=== PATIENT | female | born 1960 | race Caucasian/White ===

== ENCOUNTER 2016-05-19 04:47 | Inpatient (IN) ==
[2016-05-19] MEDS ORDERED: ASPIRIN 325 MG TABLET PO STA (05:15)
[2016-05-19] MEDS ORDERED: NITROGLYCERIN 2% OINT 1 INCH/GM PACK TOP STA (05:15)
--- NOTE | 2016-05-19 05:18 | EKG Report ---
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
[2016-05-19] MEDS ORDERED: ASPIRIN 325 MG TABLET ONE (05:24)
[2016-05-19] MEDS ORDERED: NITROGLYCERIN 2% OINT 1 INCH/GM PACK TOP ONE (05:24)
[2016-05-19 05:26] LABS: Basophils % 0.4 % (0.0-0.8); Eosinophils # 0.1 10*3/uL (0.0-0.87); Eosinophils % 0.6 % (0.00-10.9); Hematocrit 38.5 VOL% (35.7-47.0); Immature Granulocytes % 0.6 %; Immature Granulocytes Absolute 0.06 #; Lymphocytes # 4.7 10*3/uL (1.4-4.0); Lymphocytes % 50.4 % (21.3-54.2); Mean Corpuscular HGB Conc 33.8 GM/DL (32-36); Mean Corpuscular Hemoglobin 27 PG (27-34); Mean Corpuscular Volume 80.2 FL (87-102); Mean Platelet Volume 9.2 FL (9.6-12.0); Monocytes # 0.8 10*3/uL (0.11-0.8); Monocytes % 8.7 % (1.7-12.7); Neutrophils # 3.6 10*3/uL (1.4-7.4); Neutrophils % 39.3 % (38.7-73.9); Platelet Count 234 T/CUMM (130-400); Red Cell Distribution Width 13.7 % (9.3-17.3); White Blood Count 9.3 T/CUMM (4-12)
--- NOTE | 2016-05-19 05:30 | Emergency Department Note ---
I, Vi Kim, am scribing for, and in the presence of, Dewayne Prince MD 05:23. ISuresh Robert M, MD, personally performed the services described in this documentation, ascribed by Vi Kim in my presence, and it is both accurate and complete . Arrival - Arrival ED Nursing Triage Note: pt presented to triage ambulatory with c/o chest tightness and L shoulder pain that radiates down L arm. Naproxen 440mg taken GREENS TIER. pt also c/o high B/P. B/P was 208/116 GREENS TIER. Lisinopril/HCTZ 20/25mg and Atenolol taken 0400. B/P now 187/110. rates pain 08/23. Mode of Arrival: Ambulatory Limitations: No Limitations Source: Patient - History of Present Illness Onset (ago): hour(s) Consistency: intermittent Severity: moderate Severity scale (1-10): 6 Quality: sharp Date of Last Menstrual Period: hyst <Dewayne Prince - Last Filed: 05/19/16 05:30> <Shmuel Reyes - Last Filed: 05/19/16 06:45> - Arrival Chief Complaint: Chest Pain Stated Complaint: chest pain, lEFT arm pain , HBP Time Seen by Provider: 05/19/16 05:15 - History of Present Illness HPI Narrative: Pt is a 55 y/o female that came to the ED with c/o chest tightness that began about 12 hours ago. Pt has associated sxs of left arm pain radiating from the top of her shoulder to her wrist but denies nausea or fever. Pt reports she took naproxen when sxs came on and the pain eased off but then it "came back full force." Pt denies a Hx of heart problems but states she does have HTN. Pt states she is anxious as we walked into the room. Pt reports she has been lifting an overweight pt at work and it makes her chest pain worse. Pt denies being a smoker. No other complaints/pain in ED at this time. (Vi Kim) Pt is a 55 y/o female that came to the ED with c/o chest tightness that began about 12 hours ago. Pt has associated sxs of left arm pain radiating from the top of her shoulder to her wrist but denies nausea or fever. Pt reports she took naproxen when sxs came on and the pain eased off but then it "came back full force." Pt denies a Hx of heart problems but states she does have HTN. Pt states she is anxious as we walked into the room. Pt reports she has been lifting an overweight pt at work and it makes her chest pain worse. Pt denies being a smoker. No other complaints/pain in ED at this time. (Dewayne Prince) Patient states that she took her home blood pressure medications just prior to coming to the emergency department. This includes lisinopril and atenolol. ( Shmuel Reyes) Allergies/Adverse Reactions: Allergies Allergy/AdvReac Type Severity Reaction Status Date / Time Penicillins Allergy Unknown/Unable Verified 05/19/16 05:01 to obtain Review of System - Review of System 12 point system: reviewed and no additional remarkable complaints except as stated - Review of System Constitutional: Absent: chills, fever Respiratory: Absent: cough Cardiovascular: Present: other (chest tightness) Gastrointestinal: Absent: abdominal pain, nausea Musculoskeletal: Present: arm pain (left shoulder pain that radiates down to her wrist) Skin: Absent: rash Neurological: Absent: headache Psychiatric: Present: anxiety <Dewayne Prince - Last Filed: 05/19/16 05:30> Medical,Surgical,& Family Hx - Medical History Cardio: History of: Hypertension Psychological: History of: Bipolar Disorder, Depression Endocrine: History of: Diabetes Mellitus (NIDDM), Dyslipidemia Gastrointestinal: History of: GERD - Surgical History Reproductive Surgeries: Surgical HX of;: Hysterectomy - Social History Smoking Status: Never smoker Frequency of Alcohol Use: Rarely Type of Drug Use: None <Dewayne Prince - Last Filed: 05/19/16 05:30> Exam - General General appearance: alert, in no apparent distress - Head Head exam: Present: atraumatic, normocephalic - Eye Eye exam: Present: PERRL, EOMI - ENT ENT exam: Present: mucous membranes moist. Absent: mucous membranes dry - Neck Neck exam: Present: full ROM. Absent: tenderness - Chest Chest inspection: Present: symmetric chest wall rise. Absent: tenderness - Respiratory Respiratory exam: Present: normal lung sounds bilaterally. Absent: respiratory distress - Cardiovascular Cardiovascular exam: Present: regular rate, normal rhythm, normal heart sounds - Abdominal Exam Abdominal exam: Present: soft. Absent: tenderness - Extremities Exam Extremities exam: Present: full ROM. Absent: tenderness - Back Exam Back exam: Present: full ROM. Absent: tenderness - Neurological Exam Neurological exam: Present: alert, oriented X3, CN II-XII intact. Absent: motor sensory deficit - Psychiatric Psychiatric exam: Present: normal affect, normal mood - Skin Skin exam: Present: warm, dry <Dewayne Prince - Last Filed: 05/19/16 05:30> Vital Signs: Vital Signs Temperature 97.8 F 05/19/16 05:20 Pulse Rate 72 05/19/16 05:20 Respiratory Rate 20 05/19/16 05:20 Blood Pressure 187/110 05/19/16 05:20 O2 Sat by Pulse Oximetry 97 05/19/16 04:54 Course <Dewayne Prince - Last Filed: 05/19/16 05:30> - Consultations Time: 06:25 <Shmuel Reyes - Last Filed: 05/19/16 06:45> - Consultations Consultation #1: Discussed with hospitalist. Patient will be admitted to their service. Discussed with Dr. Haywood. He states that he cannot admit this patient and that I need to call the hospitalist that comes on at 7 AM. (Shmuel Reyes) Results <Dewayne Prince - Last Filed: 05/19/16 05:30> - Labs CBC & BMP: 05/19/16 05:06 05/19/16 05:06 Lab Results: I have reviewed the patients labs - EKG EKG results: interpreted by ERMD - Diagnostic Findings Procedure: Chest x-ray: image reviewed by me (No infiltrates, no pleural effusions) <Shmuel Reyes - Last Filed: 05/19/16 06:45> - Impressions EKG: Normal sinus rhythm rate of 73, nonspecific ST-T wave changes, normal axis. (Shmuel Reyes) Disposition <Dewayne Prince - Last Filed: 05/19/16 05:30> Case discussed with: patient <Shmuel Reyes - Last Filed: 05/19/16 06:45> Clinical Impression: Chest pain, Diabetes mellitus, Essential hypertension Disposition: Still a Patient Condition: Stable
[2016-05-19 05:39] LABS: INR 0.9; PT Patient Result 9.7 SECS
[2016-05-19 05:40] LABS: Apearance,Urine CLEAR (Clear); Bilirubin,Urine Negative (Negative); Blood, Urine Negative (Negative); Glucose,Urine (UA) >=500 mg/dL (Negative); Ketones,Urine Negative (Negative); Mucus,Urine Occasional /LPF (Occasional); Nitrite,Urine Negative (Negative); Protein,Urine Negative; RBC,Urine 1 /HPF (0-4); Squamous Epithelial Cell,Urine Occasional /HPF (0-10); Urine Color Straw (Yellow); Urine Specific Gravity 1.035 (1.001-1.035); Urine Urobilinogen < 2.0 EU/DL (0.2-1.0); WBC,Urine 1 /HPF (0-6)
[2016-05-19 06:01] LABS: Albumin 3.9 G/DL (3.4-5.0); Bilirubin,Total 0.4 MG/DL (0.2-1.0); Calcium 8.8 MG/DL (8.5-10.1); Osmolality,Calculated 292.7 MOS/KG (273-304); Potassium 3.9 MMOL/L (3.5-5.1); Total Protein 7.5 G/DL (6.4-8.3)
[2016-05-19] MEDS ORDERED: METOPROLOL TARTRATE 5 MG/5 ML VIAL IV STA (06:20)
[2016-05-19] MEDS ORDERED: amLODIPine 5 MG TABLET PO STA (06:20)
--- NOTE | 2016-05-19 07:32 | XRay Report ---
History: Chest pain Date: 05/19/2016 Study: Chest x-ray AP portable Comparison exam: October 23, 2008 chest x-ray There is mild cardiomegaly. There is no pulmonary vascular engorgement. The mediastinal contours are otherwise stable. There is no acute infiltrate or pleural effusion. There is calcified granuloma in the right midlung. There is nodular calcification in the proximal left humeral metaphysis as before, which may represent enchondroma Impression: Mild cardiomegaly. No acute cardiopulmonary process otherwise PROCEDURE INTERPRETED AT [facility] DEPARTMENT OF RADIOLOGY Final Report Signed by: Dr. Kim Rasheed
--- NOTE | 2016-05-19 07:50 | EKG Report ---
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
--- NOTE | 2016-05-19 08:47 | Hospitalist History & Physical ---
<Arely Omalleyda - Last Filed: 05/19/16 09:18> Assessment and Plan - Time spent with patient Time spent with patient: Greater than 30 minutes (1) Chest pain Status: Acute Assessment and plan: We will admit to inpatient telemetry for full cardiac work-up. We will obtain obtain venous and carotid doppler, HGA1C, thyroid, and lipid panels. We will initiate VTE prophylaxis. Monitor for trends in cardiac enzymes and restart all previous home medications as previously directed. Will entertain cardiology consult if warranted. Current Visit: Yes Qualifiers: Ischemic chest pain type: unspecified angina pectoris type (2) Diabetes mellitus Status: Acute Assessment and plan: We will monitor blood glucose levels every 4 hours with sliding scale coverage. Will consult dietary for dietary management. Current Visit: Yes Qualifiers: Diabetes mellitus type: type 2 Diabetes mellitus complication status: with unspecified complications (3) Essential hypertension Status: Acute Assessment and plan: Will resume antihypertensive agents as previously ordered. Will monitor vital signs closely for abnormalities. Current Visit: Yes History of Present Illness Chief complaint: Chest pain/hypertension History of present illness: This is a 55-year-old middle-aged female that presented to the ED this morning with a complaint of chest pain. 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 She reports that it initially started as epigastric pain with subsequent radiation to the neck, left upper back, and left ear. She attributed these symptoms to the increased workload assignment on the floors. As the symptoms worsen, she reports taking her blood pressure which was grossly elevated per her report at 208/116. She reports that she took several of her antihypertensive agents including Atenolol and Norvasc. She continued on with her shift until the discomfort became unbearable; at that time she presented to the ED for further evaluation. She is concerned about the confidentiality of her hospital encounter and requests do not publish status. Home Medications Medication Instructions Recorded Confirmed Type ACETAMIN/diphenhydrAMIN 500-25 2 tablet PO BEDTIME 05/19/16 05/19/16 History [Tylenol PM] Aspirin [Ecotrin] 81 mg PO DAILY 05/19/16 05/19/16 History Atenolol 25 mg PO ACHS 05/19/16 05/19/16 History Bupropion HCl [Bupropion Xl] 300 mg PO DAILY 05/19/16 05/19/16 History Insulin Glargine,Hum.rec.anlog 40 unit SUBCUT DAILY 05/19/16 05/19/16 History [Tomichealalcira NowakIngridar] Lisinopril/Hydrochlorothiazide 1 each PO DAILY 05/19/16 05/19/16 History [Lisinopril-Hctz 20-25 mg Tab] Lovastatin 20 mg PO BEDTIME 05/19/16 05/19/16 History Magnesium 400 mg PO BEDTIME 05/19/16 05/19/16 History Melatonin/Pyridoxine HCl (B6) 10 mg PO BEDTIME 05/19/16 05/19/16 History [Melatonin 5 mg Tablet] Omeprazole 20 mg PO DAILY 05/19/16 05/19/16 History lamoTRIgine [Lamotrigine Tab] 150 mg PO BEDTIME 05/19/16 05/19/16 History risperiDONE TAB [RisperDAL TAB] 0.5 mg PO ACHS 05/19/16 05/19/16 History Allergies Allergy/AdvReac Type Severity Reaction Status Date / Time Penicillins Allergy Unknown/Unable Verified 05/19/16 05:01 to obtain Medical,Surgical,& Family Hx - Medical History Cardio: History of: Hypertension Psychological: History of: Bipolar Disorder, Depression Endocrine: History of: Diabetes Mellitus (NIDDM), Dyslipidemia Gastrointestinal: History of: GERD - Surgical History Reproductive Surgeries: Surgical HX of;: Hysterectomy - Family History Family History: Reports;: Family Diabetes, Family Heart Disease, Family Hypertension - Social History Smoking Status: Never smoker Frequency of Alcohol Use: Rarely Type of Drug Use: None Marital Status: Lives With:: Spouse Functional capacity: independent ambulation Exam - Constitutional Vitals: Period Temp Pulse Resp BP Sys/Owens Pulse Ox Last 24 Hr 97.8 F-97.8 F 72-72 20-20 187-187/110-110 97 General appearance: no acute distress, morbidly obese - Head Head exam: Present: normal inspection, normocephalic, atraumatic - Eye Eye exam: Present: EOMI. Absent: conjunctival injection, periorbital swelling, scleral icterus Pupils: Present: CLIFF, normal accommodation - ENT ENT exam: Present: normal exam - Neck Neck exam: Present: normal inspection. Absent: lymphadenopathy, thyromegaly - Respiratory Respiratory exam: Present: clear to auscultation bilaterally. Absent: accessory muscle use, rales, rhonchi, stridor - Cardiovascular Cardiovascular exam: Absent: gallop, JVD, rubs - GI/Abdominal GI/Abdominal exam: Present: normal bowel sounds, soft (obese) - Extremities Exam Extremities exam: Present: normal inspection - Back Exam Back exam: Present: normal inspection - Neurological Exam Neurological exam: Present: alert, oriented X3, CN II-XII intact - Psychiatric Psychiatric exam: Present: suicidal ideation. Absent: anxious, flat affect - Skin Skin exam: Present: normal color, dry. Absent: cyanosis, diaphoretic, erythema Results - Labs CBC & BMP: 05/19/16 05:06 05/19/16 05:06 Lab Results: I have reviewed the past 24 hour labs - EKG EKG results: interpreted by VERONICA EKG shows: sinus rhythm Quality Measures - VTE Deep Vein Thrombosis/Pulmonary Embolism Present on Admission: No <Jared Flowers - Last Filed: 05/19/16 13:10> Assessment and Plan (1) Chest pain Status: Acute Assessment and plan: Agree with assessment and plan as described above. She tells me that she's had an EKG within the past [address], so we will try to get that tracing to compare with her current tracings. Current Visit: Yes Qualifiers: Ischemic chest pain type: unspecified angina pectoris type History of Present Illness History of present illness: Ms. Olivarez is a 55 year old female The patient reports a history of type II DM for about 20 years. Glucoses improved with weight reduction, and she apparently lost over 130 pounds at one point. She is recently started on a new insulin. 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 However , she's not sure about that. She found her blood pressure to be elevated, and also noted some dizziness, chest discomfort, and some vague dyspnea. There is no nausea. She presented to the emergency room for evaluation, and is admitted to rule out acute coronary syndrome. Exam - Constitutional Vitals: Period Temp Pulse Resp BP Sys/Owens Pulse Ox Last 24 Hr 98.1 F 72-74 17-18 124-137/69-75 97 Results - Labs CBC & BMP: 05/19/16 05:06 05/19/16 05:06
[2016-05-19] MEDS ORDERED: DEXTROSE 50% 25 GM/50 ML VIAL IV PRN (09:19)
[2016-05-19] MEDS ORDERED: GLUCAGON 1 MG VIAL IM PRN (09:19)
--- NOTE | 2016-05-19 11:22 | EKG Report ---
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
--- NOTE | 2016-05-19 11:37 | Ultrasound Report ---
Referring physician: Jared Flowers MD Exam: Carotid ultrasound Date: May 19, 2016 Comparison: None Reason: Chest pain, left arm pain Technique: Duplex scan of the carotid arteries was performed using B-Mode/grayscale imaging and Doppler spectral analysis and color flow. Ultrasound images were captured and stored. Findings: There is minimal partially calcified plaque at the carotid bifurcations. The carotid artery diameters are as follows: Right CCA: 0.59 cm Right proximal ICA: 0.69 cm Right distal ICA: 0.53 cm Left CCA: 0.60 cm Left proximal ICA: 0.67 cm Left distal ICA: 0.41 cm The peak systolic velocities are as follows: Right CCA: 74 cm/s Right proximal ICA: 39 cm/s Right distal ICA: 34 cm/s Right ECA: 45 cm/s Left CCA: 62 cm/s Left proximal ICA: 51 cm/s Left distal ICA: 63 cm/s Left ECA: 61 cm/s The peak systolic ICA/CCA velocity ratios are as follows: 0.5 on the right and 1.0 on the left. Antegrade flow is present within both vertebral arteries. Impression: 1. Less than 50% stenosis of both cervical internal carotid arteries. 2. The Society of Radiologists in Ultrasound consensus conference criteria was used. The Ultrasound images were captured and stored. PROCEDURE INTERPRETED AT [facility] [place] DEPARTMENT OF RADIOLOGY Final Report Signed by: Dr. Kane Wang
[2016-05-19] MEDS ORDERED: ACETAMINOPHEN 325 MG TABLET PO PRN (11:55)
[2016-05-19] MEDS: INSULIN REGULAR 100 UNIT/ML SUBCUT SCH ×3 (12:24→20:42)
--- NOTE | 2016-05-19 16:40 | Cardiology Consult Note ---
Hong Cruz Rachel, RN, am scribing for, and in the presence of, Ayan Peralta MD 16:37. Assessment and Plan - Time spent with patient Time spent with patient: Greater than 30 minutes (1) Hyperlipidemia Status: Chronic Current Visit: Yes (2) Depression Status: Chronic Current Visit: Yes (3) GERD (gastroesophageal reflux disease) Status: Chronic Current Visit: Yes (4) Family history of coronary artery disease Status: Acute Current Visit: Yes (5) Chest pain Status: Acute Current Visit: Yes Qualifiers: Ischemic chest pain type: unspecified angina pectoris type (6) Diabetes mellitus Status: Chronic Current Visit: Yes Qualifiers: Diabetes mellitus type: type 2 Diabetes mellitus complication status: with unspecified complications (7) Essential hypertension Status: Chronic Current Visit: Yes (8) Obesity Status: Acute Current Visit: Yes History of Present Illness - Data of Consult Patient: new to practice Consult date: 05/19/16 Requesting Physician: Roseanne Omalley Primary care physician: Deandra Santana - Consult Narrative Reason for consult: Chest discomfort and arm pain History of present illness: Ms. 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 Her primary care provider is Dr. Kaia Santana. Patient presented to the ER this morning after experiencing left arm pain and chest discomfort. She has risk factors significant for diabetes, hypertension, hyperlipidemia, obesity, sedentary lifestyle and family history of premature coronary artery disease (dad at age 48 from [place] , mom has history of CABG). She reports that she has never smoked in the past. Patient has a past medical history of GERD, depression and bipolar. Patient denies any significant past cardiac surgical history. She reports that she has never underwent cardiac catheterization or cardiac stress testing. 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 Patient was in her usual state of health until last night at work she began to have moderate left arm discomfort. She reports that this began around 7 PM at the beginning of her shift. This continued to get worse throughout the night and around 3:15 a.m. while getting vital signs she noticed it became more severe and radiated to her upper back. She tells me that at that time she had another RN to check her blood pressure and it was noted to be 208/116. She tells me that after seeing her blood pressure she began having mild chest discomfort. She describes her chest discomfort a mild tightening pain. She rates this a 5 out of 10. She describes her left arm pain as a constant aching pain. She rates this as a 7 out of 10. Her discomfort was not associated with shortness of breath, nausea, lightheadedness, palpitations or diaphoresis. She is unable to identify any aggravating factors. She does tell me that rest did make her arm and chest pain better. She tells me that after her shift was over she rechecked her blood pressure and it remained extremely high. Her arm pain continued so she decided to report to the ER for further evaluation at that time. She confirms that nitroglycerin did help chest and arm discomfort. She denies dyspnea on exertion, exercise intolerance, orthopnea, PND, fever, chills , cough, abdominal pain, vomiting, melena, heart racing and palpitations. She was admitted under hospitalist's service and housed on the telemetry floor for close observation. Cardiology has been consulted for further evaluation of patient's chest discomfort. Of note, patient denies exertional chest discomfort and shortness of breath. She also denies exercise intolerance. She reports that this is the only time she has experienced chest discomfort and left arm pain. Patient was seen and examined on telemetry. She was sitting up in chair without any acute distress. She has not currently requiring any oxygen. Her troponin has been negative 3 checks. Her BNP is noted to be 11. Her hemoglobin A1c is uncontrolled at 11.1. Creatinine is stable at 0.8. She continues to complain of left arm discomfort. She tells me that it is now a 2 out of 10. This pain is not reproducible upon exam and not made worse with range of motion. Chest x-ray reveals mild cardiomegaly without any acute cardia pulmonary processes. Carotid ultrasound revealed less than 50% stenosis of both cervical internal carotid arteries. EKG reveals nonspecific ST segment and T wave abnormality. There is no previous EKG to compare this to. She is currently in sinus rhythm with heart rate in the 80s without any overt arrhythmias or ectopy noted. Review of labs-blood cell count 9.3, H&H 13 and 38.5, sodium 138, potassium 3.9 , creatinine 0.8, hemoglobin A1c 11.1, troponin negative 3, BNP 11 Assessment/plan: 1. Chest pain--will proceed with left heart catheterization in the morning. 2. Diabetes--management per hospitalist 3. Hyperlipidemia-- will check a lipid panel 4. Hypertension-- This seems to be better controlled this afternoon. Will adjust medications as needed during hospitalization. 5. Obesity--counseled patient on importance of weight loss. 6. Family history of premature coronary artery disease 7. GERD--this is clinically stable Cardiology addendum Patient examined, chart reviewed, discussed in detail with the patient and her and her mother. 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 EKG shows sinus rhythm with anterior T-wave inversions. . Hemoglobin A1c of 11.1. Chest x-ray shows cardiomegaly but no CHF or infiltrate. Chronic hypertension Type II diabetic 5 feet 4 inches tall, 248 pounds Lifetime non-smoker Rare social drinker only. Father a heart attack age 48. Mother had coronary stents in 2013, followed by two-vessel CABG and then aortic valve replacement in 2014. History of depression Blood pressure 156/86. Pulse is 78 and regular. No arcus. Flat neck veins. Decreased breath sounds but clear. Regular rhythm. No murmur or gallop. Abdomen obese soft benign. Femoral pulses 2+ without bruit. Distal pulses 2+ no edema Lab data Hemoglobin 13.0 hematocrit 38.5 white blood cell count 9.3 Sodium 138 potassium 3.9 chloride 100 CO2 23 BUN 15 creatinine 0.80 INR 0.9 A1c 11.1 Plan Begin normal saline hydration Heart cath in a.m. procedure, risk benefits discussed with patient and her and her mother with nurse Salazar present for the full discussion. All questions answered she agreed proceed as outlined. This patient needs aggressive lifestyle changes and risk factor modification. CC: Jared Flowers MD - Home Medications and Allergies Home Medications: Home Medications Medication Instructions Recorded Confirmed Type ACETAMIN/diphenhydrAMIN 500-25 2 tablet PO BEDTIME 05/19/16 05/19/16 History [Tylenol PM] Aspirin [Ecotrin] 81 mg PO DAILY 05/19/16 05/19/16 History Atenolol 25 mg PO ACHS 05/19/16 05/19/16 History Bupropion HCl [Bupropion Xl] 300 mg PO DAILY 05/19/16 05/19/16 History Insulin Glargine,Hum.rec.anlog 40 unit SUBCUT DAILY 05/19/16 05/19/16 History [Ole Galan] Lisinopril/Hydrochlorothiazide 1 each PO DAILY 05/19/16 05/19/16 History [Lisinopril-Hctz 20-25 mg Tab] Lovastatin 20 mg PO BEDTIME 05/19/16 05/19/16 History Magnesium 400 mg PO BEDTIME 05/19/16 05/19/16 History Melatonin/Pyridoxine HCl (B6) 10 mg PO BEDTIME 05/19/16 05/19/16 History [Melatonin 5 mg Tablet] Omeprazole 20 mg PO DAILY 05/19/16 05/19/16 History lamoTRIgine [Lamotrigine Tab] 150 mg PO BEDTIME 05/19/16 05/19/16 History risperiDONE TAB [RisperDAL TAB] 0.5 mg PO ACHS 05/19/16 05/19/16 History Allergies/Adverse Reactions: Allergies Allergy/AdvReac Type Severity Reaction Status Date / Time Penicillins Allergy Unknown/Unable Verified 05/19/16 05:01 to obtain - Constitutional Constitutional: Absent: chills, excessive sweating, fever(s), frequent falls, weakness - Cardiovascular Cardiovascular: Present: as per HPI, radiating jaw, neck or arm pain. Absent: claudication, diaphoresis, dyspnea, dyspnea on exertion, edema, lightheadedness , orthopnea, palpitations, PND - Respiratory Respiratory: Absent: cough, dyspnea, hemoptysis, dyspnea on exertion, wheezing, pain on inspiration, change in phlegm color - Gastrointestinal Gastrointestinal: Absent: abdominal pain, change in bowel habits, coffee ground emesis, constipation, hematemesis, hematochezia, loose stools, melena, nausea, vomiting - Neurological Neurological: Absent: confusion, disequilibrium, dizziness, focal weakness, frequent falls, syncope Medical,Surgical,& Family Hx - Medical History Cardio: History of: Hypertension Psychological: History of: Bipolar Disorder, Depression Endocrine: History of: Diabetes Mellitus (NIDDM), Dyslipidemia Gastrointestinal: History of: GERD Other: History of: Miscellaneous Medical Problems (Obesity) - Surgical History Cardiac Surgeries: Patient Denies: Cardiac Catheterization, Cardiac Surgery Abdominal Surgeries: Surgical HX of: Hernia Repair Reproductive Surgeries: Surgical HX of;: Hysterectomy - Family History Family History: Reports;: Family Diabetes, Family Heart Disease, Family Hypertension - Social History Smoking Status: Never smoker Frequency of Alcohol Use: Rarely Type of Drug Use: None Physical Examination Vital Signs Temp Pulse Resp BP Pulse Ox 97.8 F 72 20 187/110 97 05/19/16 04:54 05/19/16 04:54 05/19/16 04:54 05/19/16 04:54 05/19/16 04:54 General: Present: Appears Well, No Apparent Distress Neck: Present: Supple Neck, Midline Trachea, No JVD/HJR, No Masses, No Bruit, No Lymphadenopathy, No Thyromegaly Cardiac: Present: Reg Rate and Rhythm, Regular Rate, Regular Rhythm, S1/S2, No Murmur. Absent: Gallop, Tachycardia, Bradycardia Lungs: Present: Normal Exam, Clear Ascult./Percussion, Normal Breath Sounds, No Wheeze, Rales, Rhonchi. Absent: Oxygen Abdomen: Present: Soft, Active Bowel Sounds, No Masses, Non-Tender Skin: Present: Clear. Absent: Rash, Suspicious Lesions, Ulceration Gait: Present: Normal Gait Extremities: Present: Normal Gait, No Clubbing, No Cyanosis, No Edema, Normal Upper Extr. Pulses, Normal Lower Extr. Pulses Result/EKG - Labs CBC & BMP: 05/19/16 05:06 05/19/16 05:06 Lab Results: I have reviewed the past 24 hour labs Labs: Laboratory Results - last 24 hr 05/19/16 05/19/16 05/19/16 09:31 09:31 11:17 POC Glucose Hemoglobin A1c 11.1 H Troponin I < 0.015 < 0.015 05/19/16 11:53 POC Glucose 246 H Hemoglobin A1c Troponin I - EKG EKG results: sinus rhythm Quality Measures - VTE Deep Vein Thrombosis/Pulmonary Embolism Present on Admission: No I, Ayan Peralta MD, personally performed the services described in this documentation, ascribed by Marie Pitts RN in my presence, and it is both accurate and complete 640 .
[2016-05-19] MEDS ORDERED: POTASSIUM CHLORIDE RIDER 10 MEQ in PREMIX 1 EACH IV PRN ×2 (16:47→17:43)
[2016-05-19] MEDS ORDERED: MAGNESIUM SULF RIDER 2 GM in PREMIX 1 EACH IV PRN ×2 (16:47→17:43)
[2016-05-19] MEDS: SODIUM CHLORIDE 0.9% 1,000 ML IV SCH (17:05)
--- NOTE | 2016-05-19 17:43 | Event Note ---
Patient's chart reviewed and patient seen. The patient has had chest pain with unremarkable cardiac enzymes. There are some T-wave abnormalities of the ECG. Patient has no prior cardiac history. Dr. Peralta evaluating the patient recommended cart catheterization which we've been asked to carry out tomorrow. I discussed cardiac catheterization with the patient she has no particular contraindications. Her is present that are Tylenol are discussion. Discussed with them the indications of cart catheterization how the procedure be carried out in the risk. I discussed cardiac catheterization and percutaneous coronary intervention with the patient and available family. I reviewed with them the indications for the procedure and the basis of how the procedure would be carried out. I also reviewed with them the risk of the procedure which include but not necessarily limited to access site bleeding, bruising, pain, swelling or vascular injury that may require emergency vascular surgery, blood transfusion, or thrombin injection. Also discussed the possibility of stroke, myocardial infarction, arrhythmia which may require electrocardioversion, and the possibility of dye reaction that would require medical therapy. Also discussed the possibility of coronary artery injury, ruptured, closure or perforation that may require emergency bypass surgery. We also discussed the possibility of from a major complication. They voice understanding and agree to proceed.
--- NOTE | 2016-05-19 18:28 | ECHO Report ---
Jordana Olivarez Exam Date: 05/19/2016 15:53 Referring Physician: Technologist: Marisel Lazaro RDCS Age: 55 Ht (in): Wt (lb): Gender: F Exam Location: [facility] Echo Indications: Chest pain, unspecified, Essential (primary) hypertension BP: / HR: Rhythm: Technical Quality: IMPRESSIONS EF 50-55 %. Grade I/IV diastolic dysfunction (abnormal relaxation filling pattern), normal to mildly elevated filling pressures. The right ventricle is normal in size and function. The right atrium is mildly enlarged. The left atrium is mildly enlarged. Morphologically normal mitral valve. No mitral valve regurgitation. Trileaflet aortic valve. No aortic valve regurgitation. Mild tricuspid valve regurgitation. PAP40 mmHG. Pulmonic valve not well visualized. Normal pericardium without effusion. Normal ascending aorta dimension. MEASUREMENTS (Male / Female) Normal Values 2D ECHO LV Diastolic Diameter PLAX 5.5 cm 4.2 - 5.9 / 3.9 - 5.3 cm LV Systolic Diameter PLAX 3.6 cm LV Fractional Shortening PLAX 35.0 % IVS Diastolic Thickness 1.1 cm 0.6 - 1.0 / 0.6 - 0.9 cm LVPW Diastolic Thickness 1.1 cm 0.6 - 1.0 / 0.6 - 0.9 cm RV Internal Dim ED PLAX 3.4 cm Aortic Root Diameter 2.7 cm LA Systolic Diameter LX 4.1 cm 3.0 - 4.0 / 2.7 - 3.8 cm DOPPLER TR Peak Velocity 265.0 cm/s TR Peak Gradient 28.1 mmHg FINDINGS Left Ventricle EF 50-55 %.Grade I/IV diastolic dysfunction (abnormal relaxation filling pattern), normal to mildly elevated filling pressures. Right Ventricle The right ventricle is normal in size and function. Right Atrium The right atrium is mildly enlarged. Left Atrium The left atrium is mildly enlarged. Mitral Valve Morphologically normal mitral valve. No mitral valve regurgitation. Aortic Valve Trileaflet aortic valve. No aortic valve regurgitation. Tricuspid Valve Morphologically normal tricuspid valve. Mild tricuspid valve regurgitation. PAP40 mmHG. Pulmonic Valve Pulmonic valve not well visualized. Pericardium Normal pericardium without effusion. Aorta Normal ascending aorta dimension. Taras Peralta (Electronically Signed) Final Date: 19 May 2016 18:27
[2016-05-20] MEDS: SODIUM CHLORIDE 0.9% 1,000 ML IV SCH ×2 (01:58→10:04)
[2016-05-20 05:44] LABS: Calcium 8.3 MG/DL (8.5-10.1); Osmolality,Calculated 289.8 MOS/KG (273-304); Potassium 3.9 MMOL/L (3.5-5.1)
[2016-05-20 05:48] LABS: Risk Ratio 3.89; VLDL CHOLESTEROL 56.2 MG/DL
--- NOTE | 2016-05-20 07:09 | Event Note ---
The patient is stable this morning. She for cardiac catheterization later today. I did discuss procedure the patient. Her questions are answered. She agrees and desires to proceed.
--- NOTE | 2016-05-20 07:09 | History and Physical Update ---
Sedation H&P Update - History and Physical H&P was reviewed, the patient examined and there: are no changes in the patients condition since last H&P was completed. - Dictation Physical: refer to H&P completed by admitting physician - Physical Exam Mental Status: alert and oriented Heart: regular rate and rhythm Lung: clear to auscultation Abdomen: within normal limits Vitals: within normal limits History and Physical Changes: None - Sedation Plan for Sedation: moderate Patient Consent: Procedure disscussed with patient and patinet has consented., Risks and benefits were discussed with patient,including infection,, bleeding, injury to surrounding structures, seizure, temporary nerve, Patient understands and accepts potential risks/benefits and agrees to, proceed. ASA Class: III Airway Assessment: Class IV: Only hard palate visible
[2016-05-20] MEDS ORDERED: diphenhydrAMINE CAP 25 MG CAPSULE PO ONE ×2 (08:00→12:00)
[2016-05-20] MEDS ORDERED: DIAZEPAM 5 MG TABLET PO ONE ×2 (08:00→12:30)
[2016-05-20] MEDS ORDERED: ASPIRIN EC 81 MG TABLET PO SCH (09:00)
--- NOTE | 2016-05-20 09:56 | Hospitalist Progress Note ---
Assessment and Plan (1) Chest pain Status: Acute Assessment and plan: Impression: #1. Chest pain in a patient with multiple cardiac risk factors #2. Type II DM, likely uncontrolled #3. Hypertension Plan: Cardiac catheterization later today. She tells me that she is going to likely have a radial approach. If the study does not show significant disease, she can probably go home later today. This note was completed using ReplySend voice recognition software. 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 Current Visit: Yes Qualifiers: Ischemic chest pain type: unspecified angina pectoris type Hospitalist: Subjective Interval history: Follow-up chest pain. The patient has not had any further episodes of chest pain. She was somewhat concerned about proceeding directly to cardiac catheterization, and we discussed the rationale for doing this. She expressed understanding, and is willing to proceed. Laboratory data showed an LDL cholesterol of less than 100. Hemoglobin A1c was greater than 11. 2 sets of cardiac enzymes were normal. Exam - Constitutional Vitals: Period Temp Pulse Resp BP Sys/Owens Pulse Ox Last 24 Hr 97.0 F-98.2 F 63-81 16-20 134-174/82-88 92-100 She is up in the room sitting in a chair. Heart is regular with no murmur or gallop. Lungs are clear with no rales or wheezes. Results - Labs CBC & BMP: 05/19/16 05:06 05/20/16 04:57 Lab Results: I have reviewed the past 24 hour labs Quality Measures - VTE Deep Vein Thrombosis/Pulmonary Embolism Present on Admission: No
[2016-05-20] MEDS: INSULIN REGULAR 100 UNIT/ML SUBCUT SCH ×4 (10:04→20:53)
--- NOTE | 2016-05-20 12:11 | Cardiology Progress Note ---
Assessment and Plan (1) Hyperlipidemia Status: Chronic Current Visit: Yes (2) Depression Status: Chronic Current Visit: Yes (3) GERD (gastroesophageal reflux disease) Status: Chronic Current Visit: Yes (4) Family history of coronary artery disease Status: Acute Current Visit: Yes (5) Chest pain Status: Acute Current Visit: Yes Qualifiers: Ischemic chest pain type: unspecified angina pectoris type (6) Diabetes mellitus Status: Chronic Current Visit: Yes Qualifiers: Diabetes mellitus type: type 2 Diabetes mellitus complication status: with unspecified complications (7) Essential hypertension Status: Chronic Current Visit: Yes (8) Obesity Status: Acute Current Visit: Yes Cardiology - PN: Subj Interval history: Cardiology note No further pain. Patient is anxious. Several family members at the bedside. Telemetry shows regular rhythm without ectopy or pauses O2 sat 94% on room air. Blood pressure 146/82 Decreased breath sounds but clear Regular rhythm no gallop or murmur Femoral pulses 2+ without bruit Distal pulses 2+ symmetric Echo Doppler showed ejection fraction of 50-55% with grade 1 diastolic dysfunction, structurally normal valves, mildly dilated left atrium, mild TR PA pressure 40 with no effusion Lab data today Sodium 144 potassium 3.9 chloride 108 CO2 24 BUN 9 creatinine 0.40 glucose 186 Impression New onset chest pain with anterior T-wave inversions Longtime diabetic with poor control. Hemoglobin A1c 11.1 Chronic hypertension Obesity Hyperlipidemia Strong family history CAD Plan Heart cath today with Dr. Klein Diabetes consult Risk factor modification Exam (Progress Note) - Constitutional Vitals: Period Temp Pulse Resp BP Sys/Owens Pulse Ox Last 24 Hr 97.0 F-98.2 F 63-81 16-20 134-174/82-88 92-100 Result/EKG - Labs CBC & BMP: 05/19/16 05:06 05/20/16 04:57 Labs: Laboratory Results - last 24 hr 05/19/16 05/19/16 05/19/16 11:17 16:42 19:54 Sodium Potassium Chloride Carbon Dioxide Anion Gap BUN Creatinine GFR Calculation BUN/Creatinine Ratio Glucose POC Glucose 274 H 247 H Calculated Osmolality Calcium Troponin I < 0.015 Triglycerides Cholesterol LDL Cholesterol VLDL Cholesterol HDL Cholesterol Heart Disease Risk Ratio 05/20/16 05/20/16 05/20/16 04:57 04:58 07:39 Sodium 144 Potassium 3.9 Chloride 108 H Carbon Dioxide 24 Anion Gap 15.9 H BUN 9 Creatinine 0.40 L GFR Calculation 149 BUN/Creatinine Ratio 22.00 H Glucose 186 H POC Glucose 248 H Calculated Osmolality 289.8 Calcium 8.3 L Troponin I Triglycerides 281 H Cholesterol 148 LDL Cholesterol 86.0 VLDL Cholesterol 56.2 HDL Cholesterol 38 L Heart Disease Risk Ratio 3.89 05/20/16 11:26 Sodium Potassium Chloride Carbon Dioxide Anion Gap BUN Creatinine GFR Calculation BUN/Creatinine Ratio Glucose POC Glucose 254 H Calculated Osmolality Calcium Troponin I Triglycerides Cholesterol LDL Cholesterol VLDL Cholesterol HDL Cholesterol Heart Disease Risk Ratio Quality Measures - VTE Deep Vein Thrombosis/Pulmonary Embolism Present on Admission: No
[2016-05-20] MEDS: buPROPion XL 150 MG TABLET PO SCH (13:47)
[2016-05-20] MEDS: LISINOPRIL/HCTZ 20-25 MG TABLET PO SCH (13:47)
[2016-05-20] MEDS ORDERED: VERAPAMIL 5 MG/2 ML VIAL ONE (14:55)
[2016-05-20] MEDS ORDERED: LIDOCAINE 1% 20 ML VIAL ONE (14:55)
[2016-05-20] MEDS ORDERED: NITROGLYCERIN DRIP 50 MG/250 ML BOTTLE IV ONE (14:55)
[2016-05-20] MEDS ORDERED: fentaNYL 100 MCG/2 ML VIAL ONE (14:59)
[2016-05-20] MEDS ORDERED: MIDAZOLAM 2 MG/2 ML VIAL ONE ×3 (14:59→15:52)
[2016-05-20] MEDS ORDERED: ENOXAPARIN 30 MG/0.3 ML SYRINGE ONE (15:25)
[2016-05-20] MEDS ORDERED: TIROFIBAN 5,000 MCG/100 ML PREMIX IV ONE (15:36)
[2016-05-20] MEDS ORDERED: HYDROmorphone 2 MG/1 ML VIAL ONE (15:52)
[2016-05-20] MEDS ORDERED: TIROFIBAN 5,000 MCG/100 ML PREMIX IV SCH (16:00)
[2016-05-20] MEDS ORDERED: TICAGRELOR 90 MG TABLET ONE (16:22)
[2016-05-20] MEDS ORDERED: TICAGRELOR 90 MG TABLET PO ONE (16:24)
[2016-05-20] MEDS ORDERED: SODIUM CHLORIDE 0.9% 1,000 ML IV SCH (16:30)
--- NOTE | 2016-05-20 16:46 | Cardiac Catheterization ---
Date of Procedure:: 05/20/16 Pre-op Diagnosis: Chest pain angina Post-op diagnosis: same (coronary disease) Procedure: LEFT HEART CATHETERIZATION History: 55-year-old female with resection coronary disease now with angina symptomatology. Pre-Op diagnosis: Chest pain/angina Postoperative diagnosis: Coronary artery disease post stenting Procedures: 1. Left heart catheterization. 2. Left ventricular angiogram. 3. Selective left and right coronary angiograms. 4. PCI of circumflex artery obtuse marginal branch. Equipment: Terumo 6 Taiwanese radial glide arterial sheath, Terumo 6 Taiwanese radial TIG 4.0 diagnostic. Medium/Large TR band. For PCI of obtuse marginal branch: EBU 3.5 PCI guide catheter, Helpful Alliance PCI guidewire, 2.0 x 12 mm Rx apex balloon, HyperQuest 2.25 mm x 23 mm CLYDE Medications: Preoperative Benadryl and Valium given by mouth. Lidocaine 1% local anesthesia 1.5 mls administered by myself. Intraprocedure patient received Versed 5 mgs IVP, fentanyl 100 mcgs IVP, Verapamil 5 mg/NTG 200 mcg in 5 ml NS; Dilaudid 1 mgs IVP; Lovenox 30 mg IVP; Aggrastat bolus 54 mL's, Aggrastat infusion 19.8 mL/hour. Complications: None immediate. Contrast: Omnipaque 204 milliliters. Description of procedure: After informed consent the patient was given preoperative medications and brought to the catheterization laboratory where their right groin and right anterior wrist and forearm was prepped and draped in usual fashion. IV sedation was then obtained after which local anesthesia with lidocaine was administered over the right radial artery. Using the double wall needle the radial artery was cannulated. Microguidewire was advanced through the cannula into the radial artery. We exchanged for the radial artery sheath that was advanced over the microguidewire. Guidewire was removed. The diagnostic 6 Taiwanese TIG 4.0 catheter was advanced and used to cross the aortic valve and left ventricular pressures were measured with LVEDP. Left ventricular angiogram was then obtained in the right oblique view. Pressures were again measured in the left ventricle with pullback pressures were then measured in the aortic root. This same catheter was then used to cannulate the left and then right coronary arteries of which angiograms were obtained of each of these vessels in multiple projections. The angiograms were then reviewed. The diagnostic catheter was then removed over the guidewire. Intervention the obtuse marginal branch was then carried out advanced the EBU 3.5 guide catheter through which the pro-water flex PCI guidewire was advanced across the lesions in the obtuse marginal branch. We carried out initial predilation with the 2.0 x 12 mm Bells balloon. We actually carried out 2 inflations at 8 tmaeka of the including a proximal mid vessel up to 31 seconds. We attempted to advance the Xience Alpine 2.25 mm x 23 mm stent was attempted to cross the lesions especially the mid lesion. We thus exchanged the stent for the balloon again in the apex balloon was used to carry out for inflations up to 13 tameka ranging from 25-30 seconds. At this point we were able to advance the Xience Alpine stent in cross the lesions and deployed the stent at 12 tameka for 30 seconds. With this in the 80% lesions were dilated to 0% residual stenosis. The initial BRIANNA 2 flow with a final BRIANNA-3 flow. After final angiograms were obtained interventional equipment catheters etc. were removed. The TR band was then placed in the usual fashion and hemostasis obtained. Hemodynamic data: LV 117/-2 , EDP 13 ; post angio LV 116/-2 , EDP 13 ; AO root 95/63 , mean 78 . On review of tracings there is no real significant gradient. Left ventricular angiogram: Left ventricle is normal size systolic function with ejection fraction of 60+ percent. Post-PVC have hyperdynamic contractility. No significant mitral regurgitation demonstrated. Left main coronary artery angiogram: Left main coronary is large and bifurcating into the LAD and circumflex arteries. It is without stenosis or disease. Left anterior descending artery angiogram: LAD proximally is a medium to large size vessel that has diffuse mid calcification. The first branch is medium caliber vessel. Beyond this branch the LAD is a medium caliber vessel extends around the posterior apex. Other than the calcification at which point there may be some minimal luminal irregularities the LAD is patent. Circumflex artery angiogram: Circumflex artery is a medium to large caliber vessel very proximally. It gives rise to a medium caliber long first obtuse marginal branch coming larger myocardium. A branch off of this may have up to 50% stenosis. Is a small branch. Second obtuse marginal branch is a small medium caliber vessel with 80% proximal and mid stenosis. Beyond this circumflex artery terminates a former third small obtuse marginal branch. PCI of second obtuse marginal branch of circumflex artery: This is as carried out above with the second obtuse marginal branch dilated from 80% lesions to 0% residual stenosis. Initial BRIANNA 2 flow to with BRIANNA-3 flow at end of procedure. Right coronary artery angiogram: The RCA is a medium caliber dominant vessel with a mean PDA is small to medium caliber posterior lateral branch is a small AV node artery. There is diffuse luminal irregularities and mild calcification less than 30% mid stenosis. Impression: 1. Left ventricle is normal size systolic function ejection fraction to plus percent. 2. LVEDP is normal at 13 mmHg. 3. At worst minimal gradient across the aortic valve. 4. No severe mitral regurgitation is demonstrated on this study. 5. RCA with luminal irregularities and less than 30% mid stenosis. 6. Left main coronary is large without stenosis. 7. LAD with some calcification and minimal luminal irregularities mid vessel. 8. Circumflex artery patent with second obtuse marginal branch having to 80% stenoses. 9. Successful stent placement of the second obtuse marginal branch of the circumflex artery. A percent lesion with BRIANNA 2 flow dilated to 0% residual stenosis with BRIANNA-3 flow. 10. No immediate or significant complications. Discussion: Post residual marked the patient. Patient may be able to go home in the next 24 hours. Risk factor modification needs to be aggressively dealt with. Implants: See above Anesthesia: local, moderate conscious sedation Surgeon / Physician: Mason Klein Gatekeeper: other (Luzmaria RODARTE) Estimated blood loss: minimal Specimens: none sent Condition: stable Disposition: floor - Medications / Follow-up
[2016-05-20] MEDS: risperiDONE 0.5 MG TABLET PO SCH (17:43)
[2016-05-20] MEDS: ATENOLOL 25 MG TABLET PO SCH (17:43)
--- NOTE | 2016-05-20 17:50 | Event Note ---
Findings at cardiac catheterization noted. I discussed this with the patient. We will plan on discharge in the morning
[2016-05-20] MEDS: TICAGRELOR 90 MG TABLET PO SCH (20:50)
[2016-05-20] MEDS ORDERED: diphenhydrAMINE CAP 50 MG CAPSULE PO SCH (21:00)
[2016-05-20] MEDS ORDERED: CARVEDILOL 3.125 MG TABLET PO SCH (21:00)
[2016-05-20] MEDS ORDERED: lamoTRIgine 100 MG TABLET PO SCH (21:00)
[2016-05-20] MEDS ORDERED: ACETAMINOPHEN 500 MG TABLET PO SCH (21:00)
[2016-05-20] MEDS ORDERED: LOVASTATIN 20 MG TABLET PO SCH (21:00)
--- NOTE | 2016-05-20 21:04 | Event Note ---
Patient doing well post-heart catheterization. Right arm is stable. Discussed findings and results with the patient and her . Hopefully bed to be discharged tomorrow.
[2016-05-21 04:40] LABS: Basophils % 0.5 % (0.0-0.8); Eosinophils # 0.1 10*3/uL (0.0-0.87); Eosinophils % 1.4 % (0.00-10.9); Hematocrit 37.4 VOL% (35.7-47.0); Hemoglobin 12.2 GM/DL (12.0-16.0); Immature Granulocytes % 0.6 %; Immature Granulocytes Absolute 0.04 #; Lymphocytes % 45.8 % (21.3-54.2); Mean Corpuscular HGB Conc 32.6 GM/DL (32-36); Mean Corpuscular Hemoglobin 27 PG (27-34); Mean Corpuscular Volume 83.7 FL (87-102); Monocytes # 0.5 10*3/uL (0.11-0.8); Monocytes % 8.3 % (1.7-12.7); Neutrophils # 2.8 10*3/uL (1.4-7.4); Neutrophils % 43.4 % (38.7-73.9); Platelet Count 213 T/CUMM (130-400); Red Blood Count 4.47 MC/CUMM (3.8-5.5); Red Cell Distribution Width 13.7 % (9.3-17.3); White Blood Count 6.5 T/CUMM (4-12)
[2016-05-21 05:14] LABS: Blood Urea Nitrogen 5 MG/DL (7-18); Cholesterol 138 MG/DL (50-200); Glucose 154 MG/DL (74-106); HDL Cholesterol 35 MG/DL (40-60); Osmolality,Calculated 287.7 MOS/KG (273-304); Potassium 3.6 MMOL/L (3.5-5.1); Risk Ratio 3.94; Sodium 145 MMOL/L (136-145); Triglycerides 317 MG/DL (2-150); VLDL CHOLESTEROL 63.4 MG/DL
[2016-05-21 05:24] LABS: Troponin I Only 0.071 NG/ML (0.00-0.045)
--- NOTE | 2016-05-21 08:08 | EKG Report ---
Stationary ECG Study [facility] Test Date: 05/21/2016 8:06:25 AM Pat Name: MARJAN BAJWA Department: Room: 296 Gender: F Cord Splicer: : [id number] Requested by: Mason Caba Order Number: [id number] Reading MD: TIFF REEDER Intervals [place] Rate: 72 P: 78 MT: 187 QRS: 95 QRSD: 101 T: 89 QT: 381 QTc: 405 Interpretive Statements SINUS RHYTHM RIGHT AXIS DEVIATION Electronically Signed On 05-21-16 18:44:01 FRAMING MILL OPERATOR by TIFF REEDER [email or web address]
[2016-05-21 08:12] VITALS: BP 157/92
[2016-05-21] MEDS: TICAGRELOR 90 MG TABLET PO SCH (08:40)
[2016-05-21] MEDS: INSULIN REGULAR 100 UNIT/ML SUBCUT SCH (08:41)
[2016-05-21] MEDS: risperiDONE 0.5 MG TABLET PO SCH (08:44)
[2016-05-21] MEDS: ATENOLOL 25 MG TABLET PO SCH (08:44)
[2016-05-21] MEDS: LISINOPRIL/HCTZ 20-25 MG TABLET PO SCH (08:45)
[2016-05-21] MEDS: buPROPion XL 150 MG TABLET PO SCH (08:45)
[2016-05-21] MEDS ORDERED: PANTOPRAZOLE 40 MG TABLET PO SCH (09:00)
[2016-05-21] MEDS ORDERED: INSULIN GLARGINE 100 UNIT/ML SUBCUT SCH (09:00)
[2016-05-21] MEDS ORDERED: ASPIRIN EC 81 MG TABLET PO SCH (09:00)
--- NOTE | 2016-05-21 09:39 | Discharge Summary ---
Hospital Course - Hospital Course Hospital Course: Discharge diagnosis: 1. Coronary disease, status post stenting 2. Type II DM 3. Hypertension The patient presented to the hospital for evaluation of some chest pain. She ended up going to cardiac catheterization, and was found to have significant stenosis of 1 of the circumflex branches. This was treated with a drug-coated stent. She tolerated the procedure well, and is now ready for discharge. Diagnosis - Discharge Diagnosis (1) Chest pain Status: Resolved Specialty Discharge - Follow Up or Referrals Discharge Plan - Discharge Data Disposition: Disch To Home/Self Care Condition at Discharge: Stable Discharge Diet: advance to your usual diet Activity: resume usual activities as tolerated Hygiene: no restrictions Weight Bearing at Discharge: full weight bearing Driving: no restrictions - Discharge Medications New Ticagrelor [Brilinta] 90 mg PO BID #60 tablet Continue Lovastatin 20 mg PO BEDTIME Lisinopril/Hydrochlorothiazide [Lisinopril-Hctz 20-25 mg Tab] 1 each PO DAILY lamoTRIgine [Lamotrigine Tab] 150 mg PO BEDTIME Bupropion HCl [Bupropion Xl] 300 mg PO DAILY Atenolol 25 mg PO ACHS Aspirin [Ecotrin] 81 mg PO DAILY risperiDONE TAB [RisperDAL TAB] 0.5 mg PO ACHS Magnesium 400 mg PO BEDTIME ACETAMIN/diphenhydrAMIN 500-25 [Tylenol PM] 2 tablet PO BEDTIME Omeprazole 20 mg PO DAILY Insulin Glargine,Hum.rec.anlog [Ole Galan] 40 unit SUBCUT DAILY Melatonin/Pyridoxine HCl (B6) [Melatonin 5 mg Tablet] 10 mg PO BEDTIME - Follow Up or Referral - Forms/Instructions Instructions: Coronary Artery Disease (GEN), Left Heart Catheterization (DC), Heart Healthy Diet (GEN), Coronary Intravascular Stent Placement, Publishing Agent (GEN) Additional Discharge Instructions: Return to work 05/26/2016 Exam - Constitutional Vitals: Period Temp Pulse Resp BP Sys/Owens Pulse Ox Last 24 Hr 98 F-98.2 F 69-82 18-20 112-157/66-92 95-98 She is afebrile. Heart is regular with no murmur or gallop. Lungs are clear. Radial artery site is minimally tender. There is good capillary refill distal. Discharge Results Procedures and tests throughout hospitalization: Pending Orders 05/20/16 11:11 CL heart Routine Labs on day of discharge: Labs from last 24 hours 05/21/16 05/21/16 05/21/16 07:44 04:16 04:16 WBC 6.5 D RBC 4.47 Hgb 12.2 Hct 37.4 MCV 83.7 L MCH 27 MCHC 32.6 RDW 13.7 Plt Count 213 MPV 9.0 L Neut % (Auto) 43.4 Lymph % (Auto) 45.8 [place] % (Auto) 8.3 Eos % (Auto) 1.4 Baso % (Auto) 0.5 Neut # (Auto) 2.8 Lymph # (Auto) 3.0 [place] # (Auto) 0.5 Eos # (Auto) 0.1 Baso # (Auto) 0.0 Immature Gran % 0.6 Nucleated RBC % 0.0 Immature Gran # 0.04 Nucleated RBCs # 0.00 Sodium 145 Potassium 3.6 Chloride 107 Carbon Dioxide 26 Anion Gap 15.6 H BUN 5 L Creatinine 0.40 L GFR Calculation 147 BUN/Creatinine Ratio 12.00 Glucose 154 H POC Glucose 225 H Calculated Osmolality 287.7 Calcium 9.0 Total Creatine Kinase 44 CK-MB (CK-2) 1.4 Troponin I 0.071 H D Triglycerides 317 H Cholesterol 138 LDL Cholesterol 77.0 VLDL Cholesterol 63.4 HDL Cholesterol 35 L Heart Disease Risk Ratio 3.94 05/20/16 05/20/16 05/20/16 19:19 17:03 11:26 WBC RBC Hgb Hct MCV MCH MCHC RDW Plt Count MPV Neut % (Auto) Lymph % (Auto) [place] % (Auto) Eos % (Auto) Baso % (Auto) Neut # (Auto) Lymph # (Auto) [place] # (Auto) Eos # (Auto) Baso # (Auto) Immature Gran % Nucleated RBC % Immature Gran # Nucleated RBCs # Sodium Potassium Chloride Carbon Dioxide Anion Gap BUN Creatinine GFR Calculation BUN/Creatinine Ratio Glucose POC Glucose 250 H 223 H 254 H Calculated Osmolality Calcium Total Creatine Kinase CK-MB (CK-2) Troponin I Triglycerides Cholesterol LDL Cholesterol VLDL Cholesterol HDL Cholesterol Heart Disease Risk Ratio DS: Provider Date of admission: 05/19/16 08:04 Primary care physician: . No PCP Attending physician on admission: Jared Flowers MD Consults: 05/19/16 09:20 Consult to [facility], Educator [CONS] Routine Reason for Financial Health Counselor: Diabetes Education 05/19/16 09:23 Consult to Pharmacy [CONS] Routine Reason for Pharmacy Consult: Adjust Meds Renal Funct 05/19/16 13:31 Consult to Physician [CONS] Routine Comment: Consulting Provider: Ayan Peralta When should Consulting Provider be notified: Now 05/19/16 17:23 Consult to Dietitian [CONS] Routine Reason for Dietitian: Diet Recommendations Diet Instruction Dietary Consult 05/20/16 16:24 Consult to Cardiac Rehabilitation [CONS] Routine Reason for Cardiac Rehabilitation: Risk Factor Modification 05/21/16 09:27 Consult to Dietitian [CONS] Routine Reason for Dietitian: Dietary Consult Diet Recommendations Diet Instruction Consult Comment: Please see patient prior to discharge. Discharging clinician: Jared Flowers MD Expected date of discharge: 05/21/16
--- NOTE | 2016-05-21 10:33 | Cardiology Progress Note ---
Hong Cruz Rachel, RN, am scribing for, and in the presence of, Desirae Cortés NP 10:33. <Desirae Cortés - Last Filed: 05/21/16 10:31> Assessment and Plan (1) Hyperlipidemia Status: Chronic (2) Depression Status: Chronic (3) GERD (gastroesophageal reflux disease) Status: Chronic (4) Family history of coronary artery disease Status: Acute (5) Chest pain Status: Resolved Qualifiers: Ischemic chest pain type: unspecified angina pectoris type (6) Diabetes mellitus Status: Chronic Qualifiers: Diabetes mellitus type: type 2 Diabetes mellitus complication status: with unspecified complications (7) Essential hypertension Status: Chronic (8) Obesity Status: Acute (9) Coronary artery disease Status: Acute Cardiology - PN: Subj Interval history: Patient is status post left heart catheterization yesterday per Dr. Klein with successful stent placement of the second obtuse marginal branch of the circumflex artery. The right radial approach was used. Incision site is stable without bleeding or hematoma. 2+ bilateral radial pulses noted. Patient did well and is without all combinations this morning. She reports that she has ambulated in the halls without any chest discomfort or shortness of breath. Stressed the importance of medication compliance with dual antiplatelet therapy. Patient verbalizes understanding of the importance of these medications. Medications have been reviewed. Patient is on appropriate medication regimen including Brilinta, aspirin, beta davian and ELIF inhibitor. Creatinine is stable post catheterization at 0.4. Troponin of 0.071 noted this morning. She is currently in sinus rhythm with heart rates in the 80s without any overt arrhythmias or ectopy. Patient is okay to be discharged per cardiology standpoint. Follow-up appointment with Dr. Peralta in 1-2 weeks with CBC, BMP with magnesium. Echo Doppler showed ejection fraction of 50-55% with grade 1 diastolic dysfunction, structurally normal valves, mildly dilated left atrium, mild TR PA pressure 40 with no effusion Review of labs--white blood cell count 6.5, H&H 37.4 and 12.2, platelet count 213, sodium 145, chloride 107, potassium 3.6, troponin 0.071, creatinine 0.4, BUN 5, LDL 77, HDL 35, triglycerides 317, and total cholesterol 138. Impression Coronary artery disease, status post left heart catheterization with successful stent placement to the second obtuse marginal branch of the circumflex artery. Hypertension Hyperlipidemia Diabetes Obesity Family history of CAD Plan: Dual antiplatelet therapy Continue beta davian and ELIF inhibitor at discharge Dietitian consult Lifestyle modifications Consider changing patient's statin to high intensity statin for further risk stratification. Follow up with Dr. Peralta in 1-2 weeks with CBC, BMP with magnesium DIscussed with HEMA Alfonso, and agree with her findings and recommendations. ---RACHEL Arshad Exam (Progress Note) - Constitutional Vitals: Period Temp Pulse Resp BP Sys/Owens Pulse Ox Last 24 Hr 98 F-98.2 F 69-82 18-20 112-157/66-92 95-98 General appearance: no acute distress, over weight - Head Head exam: Present: normal inspection, normocephalic, atraumatic - Neck Neck exam: Present: normal inspection. Absent: lymphadenopathy, tenderness, thyromegaly - Respiratory Respiratory exam: Present: clear to auscultation bilaterally. Absent: accessory muscle use, chest wall tenderness, rales, rhonchi, stridor, wheezes - Cardiovascular Cardiovascular exam: Present: regular rate and rhythm. Absent: gallop, rubs, systolic murmur - GI/Abdominal GI/Abdominal exam: Present: normal bowel sounds, soft. Absent: distended, firm , mass, tenderness - Extremities Exam Extremities exam: Present: normal inspection, normal capillary refill, other ( Normal upper and lower extremity pulses. Right wrist cath site stable without bleeding or hematoma.). Absent: calf tenderness, edema - Neurological Exam Neurological exam: Present: alert, oriented X3, normal gait - Psychiatric Psychiatric exam: Present: normal affect, normal mood. Absent: agitated, anxious, depressed - Skin Skin exam: Present: normal color, warm, dry. Absent: cyanosis, erythema Result/EKG - Labs CBC & BMP: 05/21/16 04:16 05/21/16 04:16 Lab Results: I have reviewed the past 24 hour labs Labs: Laboratory Results - last 24 hr 05/20/16 05/20/16 05/20/16 11:26 17:03 19:19 WBC RBC Hgb Hct MCV MCH MCHC RDW Plt Count MPV Neut % (Auto) Lymph % (Auto) [place] % (Auto) Eos % (Auto) Baso % (Auto) Neut # (Auto) Lymph # (Auto) [place] # (Auto) Eos # (Auto) Baso # (Auto) Immature Gran % Nucleated RBC % Immature Gran # Nucleated RBCs # Sodium Potassium Chloride Carbon Dioxide Anion Gap BUN Creatinine GFR Calculation BUN/Creatinine Ratio Glucose POC Glucose 254 H 223 H 250 H Calculated Osmolality Calcium Total Creatine Kinase CK-MB (CK-2) Troponin I Triglycerides Cholesterol LDL Cholesterol VLDL Cholesterol HDL Cholesterol Heart Disease Risk Ratio 05/21/16 05/21/16 05/21/16 04:16 04:16 07:44 WBC 6.5 D RBC 4.47 Hgb 12.2 Hct 37.4 MCV 83.7 L MCH 27 MCHC 32.6 RDW 13.7 Plt Count 213 MPV 9.0 L Neut % (Auto) 43.4 Lymph % (Auto) 45.8 [place] % (Auto) 8.3 Eos % (Auto) 1.4 Baso % (Auto) 0.5 Neut # (Auto) 2.8 Lymph # (Auto) 3.0 [place] # (Auto) 0.5 Eos # (Auto) 0.1 Baso # (Auto) 0.0 Immature Gran % 0.6 Nucleated RBC % 0.0 Immature Gran # 0.04 Nucleated RBCs # 0.00 Sodium 145 Potassium 3.6 Chloride 107 Carbon Dioxide 26 Anion Gap 15.6 H BUN 5 L Creatinine 0.40 L GFR Calculation 147 BUN/Creatinine Ratio 12.00 Glucose 154 H POC Glucose 225 H Calculated Osmolality 287.7 Calcium 9.0 Total Creatine Kinase 44 CK-MB (CK-2) 1.4 Troponin I 0.071 H D Triglycerides 317 H Cholesterol 138 LDL Cholesterol 77.0 VLDL Cholesterol 63.4 HDL Cholesterol 35 L Heart Disease Risk Ratio 3.94 Quality Measures - VTE Contraindication to Pharmacological VTE Prophylaxis: High Risk of Bleeding Specialty Discharge - Follow Up or Referrals Follow up with: Ayan Peralta MD [Physician] - 06/04/16 11:00 am (Appointment in 1-2 weeks with CBC BMP and magnesium. Be there at 10:40 a.m. for lab work. Appointment to follow at 11:00 a.m. ) <Ayan Peralta - Last Filed: 05/21/16 11:33> Assessment and Plan (1) Hyperlipidemia Status: Chronic (2) Depression Status: Chronic (3) GERD (gastroesophageal reflux disease) Status: Chronic (4) Family history of coronary artery disease Status: Acute (5) Chest pain Status: Resolved Qualifiers: Ischemic chest pain type: unspecified angina pectoris type (6) Diabetes mellitus Status: Chronic Qualifiers: Diabetes mellitus type: type 2 Diabetes mellitus complication status: with unspecified complications (7) Essential hypertension Status: Chronic (8) Obesity Status: Acute Cardiology - PN: Subj Interval history: Cardiology addendum. Patient examined and chart reviewed. Right wrist has a good pulse. Telemetry benign. Patient met with dietitian Office visit 2 weeks with EKG Aggressive lifestyle changes and risk factor modification have been emphasized Exam (Progress Note) - Constitutional Vitals: Period Temp Pulse Resp BP Sys/Owens Pulse Ox Last 24 Hr 98 F-98.2 F 69-82 18-20 112-157/66-92 95-98 Result/EKG - Labs CBC & BMP: 05/21/16 04:16 05/21/16 04:16 Labs: Laboratory Results - last 24 hr 05/20/16 05/20/16 05/20/16 11:26 17:03 19:19 WBC RBC Hgb Hct MCV MCH MCHC RDW Plt Count MPV Neut % (Auto) Lymph % (Auto) [place] % (Auto) Eos % (Auto) Baso % (Auto) Neut # (Auto) Lymph # (Auto) [place] # (Auto) Eos # (Auto) Baso # (Auto) Immature Gran % Nucleated RBC % Immature Gran # Nucleated RBCs # Sodium Potassium Chloride Carbon Dioxide Anion Gap BUN Creatinine GFR Calculation BUN/Creatinine Ratio Glucose POC Glucose 254 H 223 H 250 H Calculated Osmolality Calcium Total Creatine Kinase CK-MB (CK-2) Troponin I Triglycerides Cholesterol LDL Cholesterol VLDL Cholesterol HDL Cholesterol Heart Disease Risk Ratio 05/21/16 05/21/16 05/21/16 04:16 04:16 07:44 WBC 6.5 D RBC 4.47 Hgb 12.2 Hct 37.4 MCV 83.7 L MCH 27 MCHC 32.6 RDW 13.7 Plt Count 213 MPV 9.0 L Neut % (Auto) 43.4 Lymph % (Auto) 45.8 [place] % (Auto) 8.3 Eos % (Auto) 1.4 Baso % (Auto) 0.5 Neut # (Auto) 2.8 Lymph # (Auto) 3.0 [place] # (Auto) 0.5 Eos # (Auto) 0.1 Baso # (Auto) 0.0 Immature Gran % 0.6 Nucleated RBC % 0.0 Immature Gran # 0.04 Nucleated RBCs # 0.00 Sodium 145 Potassium 3.6 Chloride 107 Carbon Dioxide 26 Anion Gap 15.6 H BUN 5 L Creatinine 0.40 L GFR Calculation 147 BUN/Creatinine Ratio 12.00 Glucose 154 H POC Glucose 225 H Calculated Osmolality 287.7 Calcium 9.0 Total Creatine Kinase 44 CK-MB (CK-2) 1.4 Troponin I 0.071 H D Triglycerides 317 H Cholesterol 138 LDL Cholesterol 77.0 VLDL Cholesterol 63.4 HDL Cholesterol 35 L Heart Disease Risk Ratio 3.94 Moo Cruz Bonnie E, NP, personally performed the services described in this documentation, ascribed by Marie Pitts RN in my presence, and it is both accurate and complete .
== END 2016-05-21 10:55 | disposition home or self-care (01) | DRG 247 ==
LOC: N.ED 04:47 → N.EDINP 08:04 → N.TELEN 08:46
PROVIDERS: ADMIT Internal Medicine Geriatric Medicine; ATTEND Internal Medicine Geriatric Medicine
PROC: CLCCHCL (ICD-10-PCS; 2016-05-20 15:15)